=== PATIENT | female | born 1975 | race Caucasian/White ===

== ENCOUNTER 2016-10-23 09:45 | Outpatient (CLI) | payer OTHER | END 2016-10-23 09:46 | disposition home or self-care (01) | LOC: LAB.R 09:45 | PROVIDERS: ATTEND Family Medicine | DX: N39.0 Urinary tract infection, site not specified (principal) | CPT/HCPCS: 87086 ==

== ENCOUNTER 2017-06-29 08:00 | Outpatient (CLI) | payer OTHER | END 2017-06-29 08:01 | disposition home or self-care (01) | LOC: LAB.R 08:00 | PROVIDERS: ATTEND Physician Assistant Medical | DX: N94.9 Unspecified condition associated with female genital organs and menstrual cycle (principal); N76.0 Acute vaginitis | CPT/HCPCS: 81599; 87255 ==

== ENCOUNTER 2018-06-10 16:04 | Outpatient (CLI) | payer OTHER ==
[2018-06-10 16:24] LABS: HGB - HEMOGLOBIN 12.2 g/dL (12.0-16.0); MEAN CORPUSCULAR HEMOGLOBIN 31.5 pg (27.0-31.0); MEAN CORPUSCULAR HGB CONC 33.6 g/dL (32.0-36.0); MEAN CORPUSCULAR VOLUME 93.8 fL (81.0-99.0); MEAN PLATELET VOLUME 10.6 fL (7.9-10.8); RED BLOOD COUNT 3.88 10^6/uL (4.20-5.40); RED CELL DISTRIBUTION WIDTH 14.5 % (12.0-15.0); WHITE BLOOD COUNT 6.4 x10^3/uL (4.8-10.8)
[2018-06-10 16:53] LABS: THYROID STIMULATING HORMONE 2.98 uIU/mL (0.34-5.60)
[2018-06-10 16:58] LABS: FERRITIN 59.5 ng/mL (11.0-306.8)
[2018-06-10 17:36] LABS: % IRON SATURATION 22 % (20-50); IRON 63 ug/dL (28-170); TOTAL IRON BINDING CAPACITY 283 ug/dL (250-450); TRANSFERRIN 202 mg/dL (192-382)
[2018-06-11 10:41] LABS: HEPATITIS C ANTIBODY NON-REACTIVE (NON-REACTIVE)
[2018-06-11 10:56] LABS: HEPATITIS B SURFACE ANTIGEN NON-REACTIVE (NON-REACTIVE)
[2018-06-11 13:07] LABS: HIV AG/AB 4TH GEN NON-REACTIVE (NON-REACTIVE)
== END 2018-06-10 16:05 | disposition home or self-care (01) ==
LOC: LAB 16:04
PROVIDERS: ATTEND Nurse Practitioner Obstetrics & Gynecology
DX: R42 Dizziness and giddiness (principal); Z11.3 Encounter for screening for infections with a predominantly sexual mode of transmission
CPT/HCPCS: 36415; 81599; 82728; 83540; 84443; 84466; 85025; 85027; 86695; 86696; 86803; 87340; 87389

== ENCOUNTER 2019-09-13 16:59 | Outpatient (CLI) | payer OTHER ==
--- NOTE | 2019-09-13 18:54 | Ultrasound Report ---
Reason: CYCLIC PELVIC PAIN Procedure Date: 09/13/2019 Accession Number: [id number] / [id number] Procedure: US - Pelvic w/Transvaginal CPT Code: Final Report FULL RESULT: EXAM: PELVIC ULTRASOUND EXAM DATE: 09/13/2019 05:55 PM. CLINICAL HISTORY: Cyclic pelvic pain. COMPARISON: ABDOMEN/PELVIS W/ 03/10/2016 9:00 PM. TECHNIQUE: Realtime transabdominal pelvic scan performed to identify the uterus and adnexa and as an overview of other pelvic structures, followed by transvaginal scan to provide greater detail of the uterus and adnexa, with static image documentation. FINDINGS: Uterus: 8.8 x 4 x 5.1 cm, volume 93 cc. Anteverted position. Normal-sized, heterogeneous myometrium with poorly defined junctional zone. Masses: None. Endometrium: 3 mm. Small echogenic foci are present. Cervix: Unremarkable. Right Ovary: 2.6 x 1.6 x 2.5 cm, volume 5.6 cc. Normal echotexture and blood flow. Left Ovary: 2 x 1.6 x 2.2 cm, volume 3.6 cc. Normal echotexture and blood flow. Free Fluid: None. Other: None. IMPRESSION: 1. Heterogeneous appearance of the myometrium without discrete uterine masses. 2. Thin endometrium with small echogenic foci. RADIA
== END 2019-09-13 17:00 | disposition home or self-care (01) ==
LOC: DI 16:59
PROVIDERS: ATTEND Obstetrics & Gynecology
DX: R10.2 Pelvic and perineal pain (principal); N92.1 Excessive and frequent menstruation with irregular cycle
CPT/HCPCS: 76830; 76856

== ENCOUNTER 2020-01-19 11:20 | Outpatient (CLI) | payer OTHER ==
--- NOTE | 2020-01-23 08:44 | Mammography Report ---
BILATERAL DIGITAL SCREENING MAMMOGRAM 3D/2D: 01/19/2020 CLINICAL: Baseline exam. Routine screening. No prior exams were available for comparison. The tissue of both breasts is heterogeneously dense. T his may lower the sensitivity of mammography. There is a 1 cm oval equal density asymmetry in the left breast central to the nipple middle depth 5 cm from the nipple. No other significant masses, calcifications, or other findings are seen in either breast. IMPRESSION: INCOMPLETE: NEEDS ADDITIONAL IMAGING EVALUATION The 1 cm oval equal density asymmetry in the left breast resembles a cyst and is indeterminate. Benjamin tional views with possible ultrasound are recommended. This exam was interpreted at Station ID: [id number]. NOTE: For mammograms, a report in lay terms will be sent to the patient. Approximately 15% of breast malignancies will not be visualized mammographically. In the management of a palpable breast mass, a negative mammogram must not discourage biopsy of a clinically suspicious lesion. Electronically Signed By: Dago Yung M.D. aty/:01/22/2020 13:43:37 ACR BI-RADS Category 0: Incomplete 3340F PARENCHYMAL PATTERN: (D) - The breast(s) demonstrate(s) heterogeneously dense fibroglandular parmichelley ma. BI-RADS CATEGORY: (0) - 0 Mammo and [place] [id number] Immediate follow-up LATERALITY: (L)
== END 2020-01-19 11:21 | disposition home or self-care (01) ==
LOC: DI.N 11:20
PROVIDERS: ATTEND Obstetrics & Gynecology
DX: Z12.31 Encounter for screening mammogram for malignant neoplasm of breast (principal); R92.8 Other abnormal and inconclusive findings on diagnostic imaging of breast
CPT/HCPCS: 77063; 77067

== ENCOUNTER 2020-02-19 10:17 | Outpatient (CLI) | payer OTHER ==
--- NOTE | 2020-02-20 14:37 | Mammography Report ---
UNILATERAL LEFT DIGITAL DIAGNOSTIC MAMMOGRAM 3D/2D: 02/19/2020 CLINICAL: Patient returns today to evaluate a focal asymmetry in the left breast. Comparison is made to exam dated: 01/19/2020 mammogram - [facility]. The tissue of left breast is heterogeneously dense. This may lower the sensitivity of mammography. There is a 1 cm oval equal density asymmetry in the left breast central to the nipple middle depth 5 cm from the nipple. This persists with additional views and is slightly more prominent. No other significant masses or calcifications are seen in the breast. IMPRESSION: INCOMPLETE: NEEDS ADDITIONAL IMAGING EVALUATION The 1 cm oval equal density asymmetry in the left breast resembles a cyst but remains indeterminate. An ultrasound is recommended. This was performed immediately following this exam. This exam was interpreted at Station ID: [id number]. NOTE: For mammograms, a report in lay terms will be sent to the patient. Approximately 15% of breast malignancies will not be visualized mammographically. In the management of a palpable breast mass, a negative mammogram must not discourage biopsy of a clinically suspicious lesion. Electronically Signed By: Roxi coreas/:02/19/2020 10:56:32 ACR BI-RADS Category 0: Incomplete 3340F PARENCHYMAL PATTERN: (D) - The breast(s) demonstrate(s) heterogeneously dense fibroglandular vito shaw. BI-RADS CATEGORY: (0) - 0 Ultrasound 20200219 Immediate follow-up LATERALITY: (B)
--- NOTE | 2020-02-20 14:37 | Ultrasound Report ---
LIMITED ULTRASOUND OF LEFT BREAST: 02/19/2020 CLINICAL: Patient returns for additional imaging over a suspected mass in the left breast. Comparison is made to exams dated: 02/19/2020 mammogram and 01/19/2020 mammogram - [facility]. Ultrasound of the left breast 12 o'clock region was performed. There is a benign 0.9 cm x 0.5 cm x 0.8 cm cyst in the left breast at 12 o'clock middle depth 3 cm fr om the nipple. This cyst is anechoic. This correlates with mammography findings. Color flow imagin g demonstrates that there is no vascularity present. IMPRESSION: BENIGN There is no sonographic evidence of malignancy. The 0.9 cm x 0.5 cm x 0.8 cm cyst in the left breast is benign. Return to annual mammogram screening schedule is recommended. Findings and recommendations were conveyed to the patient at time of exam. This exam was interpreted at Station ID: [id number]. Electronically Signed By: Roxi coreas/:02/19/2020 11:20:19 Ultrasound BI-RADS: 2 Benign BI-RADS CATEGORY: (2) - 2 Mammogram [id number] return to screening LATERALITY: (B)
== END 2020-02-19 10:18 | disposition home or self-care (01) ==
LOC: DI 10:17
PROVIDERS: ATTEND Obstetrics & Gynecology
DX: N60.02 Solitary cyst of left breast (principal)
CPT/HCPCS: 76642

== ENCOUNTER 2020-03-11 09:58 | Outpatient (CLI) | payer OTHER ==
[2020-03-11 11:33] LABS: BASOPHILS % (AUTO) 0.6 %; EOSINOPHILS # (AUTO) 0.1 10^3/uL (0.0-0.7); EOSINOPHILS % (AUTO) 2.6 %; HGB - HEMOGLOBIN 12.9 g/dL (12.0-16.0); LYMPHOCYTES # (AUTO) 1.5 10^3/uL (1.5-3.5); LYMPHOCYTES % (AUTO) 32.3 %; MEAN CORPUSCULAR HEMOGLOBIN 31.1 pg (27.0-31.0); MEAN CORPUSCULAR HGB CONC 32.2 g/dL (32.0-36.0); MEAN CORPUSCULAR VOLUME 96.6 fL (81.0-99.0); MEAN PLATELET VOLUME 12.7 fL (7.9-10.8); MONOCYTES # (AUTO) 0.4 10^3/uL (0.0-1.0); MONOCYTES % (AUTO) 7.7 %; NEUTROPHILS # (AUTO) 2.7 10^3/uL (1.5-6.6); NEUTROPHILS % (AUTO) 56.6 %; PLT - PLATELET COUNT 170 10^3/uL (130-450); RED BLOOD COUNT 4.15 10^6/uL (4.20-5.40); RED CELL DISTRIBUTION WIDTH 13.3 % (12.0-15.0); WHITE BLOOD COUNT 4.7 x10^3/uL (4.8-10.8)
[2020-03-11 12:25] LABS: ALBUMIN 4.3 g/dL (3.2-5.5); ALBUMIN/GLOBULIN RATIO 1.7 (1.0-2.2); BILIRUBIN,TOTAL 0.5 mg/dL (0.2-1.0); CALCIUM 9.3 mg/dL (8.5-10.3); CREATININE 0.7 mg/dL (0.4-1.0); TOTAL PROTEIN 6.9 g/dL (6.7-8.2)
== END 2020-03-11 23:59 | disposition home or self-care (01) ==
LOC: LAB.WCP 09:58
PROVIDERS: ATTEND Family Medicine
DX: F41.8 Other specified anxiety disorders (principal); D64.9 Anemia, unspecified
CPT/HCPCS: 36415; 80053; 85025

== ENCOUNTER 2023-04-20 07:30 | Outpatient (CLI) | payer OTHER ==
--- NOTE | 2023-04-20 17:16 | XRAY Report ---
PROCEDURE: Chest 2V INDICATIONS: ACUTE COUGH TECHNIQUE: 2 views of the chest were acquired. COMPARISON: None. FINDINGS: Surgical changes and devices: None. Lungs and pleura: No pleural effusions or pneumothorax. Lungs are clear. Mediastinum: Mediastinal contours appear normal. Heart size is normal. Bones and chest wall: No suspicious bony lesions. Overlying soft tissues appear unremarkable. IMPRESSION: No acute cardiopulmonary process. Reviewed by: Jenna Valadez MD on 04/20/2023 5:15 PM PST Approved by: Jenna Valadez MD on 04/20/2023 5:15 PM PST Station ID: [id number]
== END 2023-04-20 07:45 | disposition home or self-care (01) ==
LOC: DI.N 07:30
PROVIDERS: ATTEND Specialist
DX: R05.1 Acute cough (principal)